=== PATIENT | female | born 1995 | race Caucasian/White ===

== ENCOUNTER 2016-05-02 06:07 | Inpatient (IN) | payer OTHER, MEDICAID ==
[~2016-05-02] VITALS: Ht 162.6 cm; Wt 54.5 kg
[~2016-05-02 06:07] MED LIST: ALBU17AE23 IH; ARIP15TA PO; CETI10CA PO; DOCU100C37 PO; DOXE10CA PO; FERR-84 PO; FERR325C PO; HYDR-229 PO; HYDR-3583 PO; HYDR-3812 PO; IBUP-1773 PO; Ibuprofen PO; NITR100C3 PO; ONDA-42 PO; OXYC1TAB87 PO; PREN1COM6 PO; SULF1TAB38 PO; TAMS0.4C2 PO; TRAZ150T42 PO; VALTREX; acyclovir PO
--- OUTSIDE RECORDS SUMMARY | 2016-05-02 06:16 | XMS REPORT | Continuity of Care Document ---
Author Author [facility] Organization [facility] Address Unknown Phone Unavailable Care Team Providers Care Chaser Helper Name Role Phone VON CHAIDEZ MD PCP Insurance Providers Payer Name Policy Number Subscriber Name Relationship Luis Antonio [id number] Naun Loja 19 [facility] [id number] Romario Addison 18 Self / Same As Patient Advance Directives Directive Response Recorded Date/Time Advance Directives No 12/03/13 2:30pm Health Care Power of Research Technician No 12/03/13 2:30pm Organ Donor No 12/03/13 2:30pm Resuscitation Status Full Code 12/03/13 2:30pm Problems No known problems or medical conditions. Medications Medication Dose Route Sig Days/Qty Instructions Order Date Discontinued Date Status Cetirizine Hcl 10 Mg PO DAILY 05/15/11 10/30/13 Discontinued Doxepin Hcl 10 Mg PO DAILY M-F 2 HS 05/15/11 06/29/13 Discontinued Trazodone Hcl 200 Mg PO DAILY HS 05/15/11 06/29/13 Discontinued Aripiprazole 1 Tab PO DAILY DAILY 05/15/11 07/21/13 Discontinued Albuterol 17 Gm IH NEEDED PRN 05/15/11 10/30/13 Discontinued Ondansetron Hcl 4 Mg PO EVERY 6 HOURS PRN 10 Qty 05/17/11 06/29/13 Discontinued Acetaminophen/Hydrocodone Bitart 1 Ea PO Q4HR PRN 15 Qty 05/17/1106/01 Discontinued Tamsulosin Hcl 0.4 Mg PO DAILY ONE CAPSULE BY MOUTH 05/25/11 06/29/13 Discontinued Trimethoprim/Sulfamethoxazole 1 Ea PO TWICE A DAY 10 Days 05/25/1112/03 Discontinued Acetaminophen/Hydrocodone Bitart 1 Each PO Q 4 - 6 HRS PRN 4-6 HRS NEEDED FOR PAIN 05/25/11 06/29/13 Discontinued [Valtrex] 06/29/13 07/28/13 Discontinued Vit #91/Fe Fum/Fa/Dha 1 Each PO 06/29/13 10/30/13 Discontinued Nitrofurantoin Macrocrystals 1 Cap PO TWICE A DAY 20 Qty 06/29/1303/05 Discontinued [acyclovir ] 400 Mg PO TWICE A DAY 10/30/13 Active [Ibuprofen] 600 Mg PO EVERY 6 HOURS PRN PAIN 40 Qty 12/04/13 Active Ferrous Sulfate 325 ( PO DAILY 60 Qty 12/04/13 Active Oxycodone/Acetaminophen 1-2 Tab PO Q3H PRN PAIN 30 Qty 12/04/13 Active Social History Social History Problem Response Recorded Date/Time Alcohol Use Denies Use 12/03/2013 2:30pm Recreational Drug Use No 12/03/2013 2:30pm Recent Foreign Travel No 07/28/2013 11:05pm Recent Infectious Disease Exposure No 07/28/2013 11:05pm Hospitalization with Isolation Denies 12/05/2013 2:14pm Sexually Transmitted Disease No 12/03/2013 2:30pm Smoking Status Never a Smoker 12/03/2013 12:58pm Do you dip or chew tobacco? No 12/03/2013 12:58pm Query Response Start Date Stop Date Smoking Status Never a Smoker Hospital Discharge Instructions Patient Instructions Physician Instructions New, Converted or Re-Newed RX: RX on Chart Additional Follow Up: Yes (1 week with Dafne Durán/Joe, 6 weeks Edilson/ANNY) Activity: Activity as Tolerated (no lifting over 25 lbs) Driving Instructions: No Driving for 1 Week NO SMOKING: NO SMOKING Nothing Inside Vagina: No Douching, No [place], No Tampons Discharge Diet: No Restrictions Return to The Hospital For: any of the below Symptoms to Report to : Bleeding Excessive, Pain Increased, Fever Over 101 Degrees F, Vaginal Bleeding Increase (> 1 pad per hour), Cramps in Feet or Legs, Vaginal Discharge Foul For Any Problems or Questions: Contact Your Physician Infection Signs and Symptoms: Increased Redness, Foul Odor of Wound, Increased Drainage, Skin Itchy or Has a Rash, Increased Swelling, Temperature Above 101 F Operative Area Clean and Dry: Keep Incision Clean/Dry Stitches/Luis Alberto/Dermabond: Dermabond Bathing Instructions: Shower Plan of Care Discharge Date 12/05/13 1:10pm Disposition 30 STILL A PATIENT Instructions/Education Provided DISCHARGE SECTION DISCHARGE Genital Herpes Simplex (DC) Forms Provided PDI Prescriptions See Medications Section Referrals (Unspecified) VON CHAIDEZ MD (Unspecified) 01/20/14 Address: [facility] [place] [place] [address] DAFNE DURÁN (Unspecified) 12/12/13 Address: [facility] [address] [place] [address] Functional Status No functional status results. Allergies, Adverse Reactions, Alerts Allergen Type Severity Reaction Status Last Updated Risperidone Allergy Unknown Active 06/29/13 sertraline ([id number]) Allergy Unknown Active 06/29/13 citalopram ([id number]) Allergy Unknown Active 06/29/13 Immunizations Name Given Type influenza, split (incl. purified surface antigen) 11/22/13 Administered influenza, split (incl. purified surface antigen) 12/05/13 Administered Tdap 12/05/13 Administered influenza, split (incl. purified surface antigen) 12/05/13 Administered Tdap 12/05/13 Administered Vital Signs Acute Vital Signs Vital Response Date/Time Temperature (Fahrenheit) 97.2 degrees F (97.6 - 99.5) Temperature (Calculated Celsius) 36.21988 degrees C (36.4 - 37.5) Temperature Source Tympanic Pulse Rate (adult) 80 bpm (60 - 90) Respiratory Rate 16 bpm (12 - 24) O2 Sat by Pulse Oximetry 98 % (88 - 100) Blood Pressure 120/80 mm Hg Pain Pain Intensity 0 Height (Feet) 5 feet Height (Inches) 4.00 inches Height (Calculated Centimeters) 162.861490 cm Weight (Pounds) 149 pounds Weight (Ounces) 0.0 oz Weight (Calculated Grams) 32217.264 gm Weight (Calculated Kilograms) 67.785085 kilograms Calculated BMI 25.57 Results Test Source Date Result Interp. Ref. Range Comments Alanine Aminotransferase (ALT/SGPT) May 15, 2011 9:45am 33 U/L N 30- 65 Specimen Comment: blood in lab Albumin May 15, 2011 9:45am 4.1 G/DL N 3.4-5.0 Specimen Comment: blood in lab Alkaline Phosphatase May 15, 2011 9:45am 129 U/L N 60-350 Specimen Comment: blood in lab Aspartate Amino Transf (AST/SGOT) May 15, 2011 9:45am 17 U/L N 15-37 Specimen Comment: blood in lab BUN/Creatinine Ratio May 17, 2011 6:00am 11 - Blood Urea Nitrogen May 17, 2011 6:00am 8 MG/DL N 7-18 Calcium Level May 17, 2011 6:00am 8.5 MG/DL N 8.5-10.1 Carbon Dioxide Level May 17, 2011 6:00am 30 MMOL/L N 21-32 Chloride Level May 17, 2011 6:00am 107 MMOL/L N 101-110 Creatinine May 17, 2011 6:00am 0.7 MG/DL N 0.6-1.3 D-Dimer July 28, 2013 11:40pm 0.87 UG/ML H 0.00-0.49 Glucose Level May 17, 2011 6:00am 87 MG/DL N 74-106 Hematocrit May 16, 2011 5:37am 33 % L 35-52 Hemoglobin May 16, 2011 5:37am 11.6 G/DL N 11.5-16.0 Mean Corpuscular Hemoglobin May 16, 2011 5:37am 33 PG N 25-34 Mean Corpuscular Hemoglobin Concent May 16, 2011 5:37am 35 G/DL N 32- 36 Mean Corpuscular Volume May 16, 2011 5:37am 94 FL N 77-95 Mean Platelet Volume May 16, 2011 5:37am 10.3 FL N 7.4-10.4 Platelet Count May 16, 2011 5:37am 215 10^3/uL N 130-400 Potassium Level May 17, 2011 6:00am 4.1 MMOL/L N 3.6-5.0 Red Blood Count May 16, 2011 5:37am 3.57 10^6/uL L 3.79-5.25 Red Cell Distribution Width May 16, 2011 5:37am 11.7 % N 10.0-14.5 Sodium Level May 17, 2011 6:00am 142 MMOL/L N 135-145 Total Bilirubin May 15, 2011 9:45am 0.4 MG/DL N 0.0-1.0 Specimen Comment: blood in lab Total Protein May 15, 2011 9:45am 7.8 G/DL N 6.4-8.2 Specimen Comment : blood in lab Urine Bacteria June 29, 2013 5:35pm TRACE /HPF - Has specimen been collected/obtained? YSpecimen Description CLEAN CATCH Urine Bilirubin June 29, 2013 5:35pm NEGATIVE - Has specimen been collected/obtained? YSpecimen Description CLEAN CATCH Urine Casts June 29, 2013 5:35pm NONE /LPF - Has specimen been collected/obtained? YSpecimen Description CLEAN CATCH Urine Clarity June 29, 2013 5:35pm CLEAR - Has specimen been collected /obtained? YSpecimen Description CLEAN CATCH Urine Color June 29, 2013 5:35pm YELLOW - Has specimen been collected/ obtained? YSpecimen Description CLEAN CATCH Urine Crystals June 29, 2013 5:35pm NONE /LPF - Has specimen been collected/obtained? YSpecimen Description CLEAN CATCH Urine Culture Indicated June 29, 2013 5:35pm YES - Has specimen been collected/obtained? YSpecimen Description CLEAN CATCH Urine Glucose (UA) June 29, 2013 5:35pm NEGATIVE - Has specimen been collected/obtained? YSpecimen Description CLEAN CATCH Urine Ketones June 29, 2013 5:35pm 4+ H - Has specimen been collected/ obtained? YSpecimen Description CLEAN CATCH Urine Leukocyte Esterase June 29, 2013 5:35pm 3+ H - Has specimen been collected/obtained? YSpecimen Description CLEAN CATCH Urine Mucus June 29, 2013 5:35pm NEGATIVE /LPF - Has specimen been collected/obtained? YSpecimen Description CLEAN CATCH Urine Nitrite June 29, 2013 5:35pm NEGATIVE - Has specimen been collected/obtained? YSpecimen Description CLEAN CATCH Urine Test May 25, 2011 7:20am NEGATIVE - Comments to Proced Tech: ds 14 Urine Protein June 29, 2013 5:35pm 1+ H - Has specimen been collected/ obtained? YSpecimen Description CLEAN CATCH Urine RBC June 29, 2013 5:35pm 0-2 /HPF - Has specimen been collected/ obtained? YSpecimen Description CLEAN CATCH Urine Specific [place] June 29, 2013 5:35pm 1.025 H - Has specimen been collected/obtained? YSpecimen Description CLEAN CATCH Urine Squamous Epithelial Cells June 29, 2013 5:35pm 0-2 /HPF - Has specimen been collected/obtained? YSpecimen Description CLEAN CATCH Urine Urobilinogen June 29, 2013 5:35pm NORMAL MG/DL - Has specimen been collected/obtained? YSpecimen Description CLEAN CATCH Urine WBC June 29, 2013 5:35pm 5-10 /HPF H - Has specimen been collected /obtained? YSpecimen Description CLEAN CATCH Urine pH June 29, 2013 5:35pm 6 - Has specimen been collected/obtained ? YSpecimen Description CLEAN CATCH White Blood Count May 16, 2011 5:37am 6.7 10^3/uL N 4.3-11.0 Urine RBC (Auto) June 29, 2013 5:35pm 1+ H - Has specimen been collected /obtained? YSpecimen Description CLEAN CATCH MRSA Screen Nasal May 17, 2011 4:15am MRSA not isolated Urine Culture Urine-Clean Catch June 29, 2013 5:35pm Strep, Beta Hemolytic Group B Procedures Procedure Status Date Provider(s) section completed 12/03/13 PETE CHAMBERLAIN DO Encounters Encounter Location Date/Time Discharged Inpatient Via [facility] 12/03/13 12:35pm Departed Clinic Via [facility] 12/02/13 8:09pm Departed Clinic Via [facility] 11/22/13 2:00pm Departed Clinic Via [facility] 11/19/13 12:28pm Departed Clinic Via [facility] 11/14/13 1:49am Registered Clinic Via [facility] 11/11/13 10:23am
[2016-05-02] MEDS ORDERED: LEVO750T9 PO (06:22)
[2016-05-02] MEDS ORDERED: ONDA8TAB9 PO (06:22)
[2016-05-02] MEDS ORDERED: OXYC-197 PO (06:22)
[2016-05-02] MEDS ORDERED: PROCHLORPERAZINE 10 MG/2ML INJ (COMPAZINE) IV STA (06:26)
--- NOTE | 2016-05-02 06:26 | ED Abdominal Pain ---
General Chief Complaint: Abdominal/GI Problems Stated Complaint: POSS KIDNEY STONE Source of Information: Patient, Spouse, Other (some records from [facility] brought by the patient) Exam Limitations: Other (pain) History of Present Illness Time Seen By Provider: 06:25 Initial Comments Presents p/ [facility] [place] earlier this AM, 05/02, c/ severe right flank/RLQ abdominal pain that probably started a couple of days ago but became much worse last PM. Dx c/ a 7-8mm right UVJ stone c/ severe hydro as well as a UTI. Given Toradol, Fentanyl, Zofran, and Rocephin, as well as 2L of NS IV there. Patient was set up to set Dr. Hunter @ 15:30 this afternoon, but told if her pain worsened that she needed to present here for admission for pain control and anticipated Lithotripsy in AM, 05/03. Timing/Duration: Constant, Getting Worse, Other (as above) Severity/Quality: Severe, Sharp, Stabbing Location: Flank (right) Radiation: RLQ Activities at Onset: None Modifying Factors: Improves With Other (none) Associated Symptoms: Back Pain (right flank)No Fever/Chills, Nausea/Vomiting Allergies and Home Medications Allergies Coded Allergies: No Known Drug Allergies (Unverified , 08/19/15) Home Medications Levofloxacin 750 Mg Tablet 750 MG PO UD (Reported) Ondansetron 8 Mg Tab.rapdis 8 MG PO UD (Reported) Oxycodone HCl/Acetaminophen 1 Each Tablet 1 EACH PO UD (Reported) Review of Systems Constitutional: see HPI Gastrointestinal: See HPI Abdominal Pain (RLQ) Nausea Vomiting Musculoskeletal: see HPI back pain (right) All Other Systems Reviewed Negative Unless Noted: Yes (Negative excepted noted.) Past Vkxrupv-Hpwslx-Jsecss Hx Patient Social History Recent Foreign Travel: No Contact w/Someone Who Travel: No Surgeries HX Surgeries: Yes (LITHOTRIPSY) Respiratory Hx Respiratory Disorders: Yes Respiratory Disorders: Asthma Cardiovascular Hx Cardiac Disorders: No Neurological Hx Neurological Disorders: Yes Reproductive System Hx Reproductive Disorders: No Sexually Transmitted Disease: No HIV/AIDS: No Female Reproductive Disorders: Denies Genitourinary Hx Genitourinary Disorders: Yes Genitourinary Disorders: Kidney Stones Gastrointestinal Hx Gastrointestinal Disorders: No Gastrointestinal Disorders: Gastroesophageal Reflux Musculoskeletal Hx Musculoskeletal Disorders: Yes Musculoskeletal Disorders: Arthritis, Scoliosis, Chronic Back Pain Endocrine Hx Endocrine Disorders: No HEENT HX ENT Disorders: No Loss of Vision: Denies Hearing Impairment: Denies Cancer Hx Cancer: No Psychosocial Hx Psychiatric Problems: Yes (HX psychosis at 16,sleep problems,cutter-no problems since adult) Behavioral Health Disorders: ADD/ADHD, Pseudo Seizures, Bipolar Integumentary HX Skin/Integumentary Disorder: No Blood Transfusions Hx Blood Disorders: Yes (HX ANEMIA) Adverse Reaction to a Blood Tr: No (N/A) Family Medical History Family Medial History: Arthritis 19 MOTHER Asthma 19 MOTHER Diabetes mellitus 19 MOTHER Hypercholesterolemia 19 MOTHER Psychosocial problem 19 MOTHER (depression and anxiety) Severe allergy G8 SISTER (allergies to medicine/seasnal) No Family History of: AIDS Abdominal aortic aneurysm Gildardo's disease Alcoholism Alzheimer's disease Aphasia Cancer of mouth Cardiovascular disease Cataracts Colon cancer Completed stroke Congenital disease Congenital heart disease Coronary thrombosis Cystic fibrosis Deafness or hearing loss Dementia Drug abuse Dysphasia Fibrocystic disease of breast Gastroenteritis Glaucoma Headache disorder Hypertension Infertility Kidney disease Myocardial infarction Neoplasm Not obtainable due to adoption Osteoporosis Parkinson's disease Prostate cancer Respiratory disorder Seizure disorder Thyroid disease Tuberculosis Visual disorder Physical Exam Vital Signs VS - Last 72 Hours, by Label 05/02/16 06:22 Temp 97.3 Pulse 113 Resp 22 B/P 124/76 Pulse Ox 100 O2 Delivery Room Air Capillary Refill : General Appearance: WD/WN severe distress HEENT: normal ENT inspection Neck: supple Respiratory: no respiratory distress Cardiovascular: tachycardia Gastrointestinal: tenderness (RLQ) Rectal: deferred Back: CVA tenderness (R) Neurologic/Psychiatric: no motor/sensory deficits alert oriented x 3 Skin: warm/dry Progress/Results/Core Measures Results/Orders My Orders Orders-ELINOR JOSHI DO Saline Lock/Iv-Start (05/02/16 06:25) Hydromorphone Injection (Dilaudid Inject (05/02/16 06:30) Diphenhydramine Injection (Benadryl Inje (05/02/16 06:30) Prochlorperazine Injection (Compazine In (05/02/16 06:26) Hydromorphone Injection (Dilaudid Inject (05/02/16 06:30) Saline Lock/Iv-Start (05/02/16 06:29) Ns Iv 1000 Ml (Sodium Chloride 0.9%) (05/02/16 06:29) Vital Signs/I&O Vital Sign - Last 12Hours 05/02/16 06:22 Temp 97.3 Pulse 113 Resp 22 B/P 124/76 Pulse Ox 100 O2 Delivery Room Air Progress Note : Progress Note Much improved p/ the Dilaudid Departure Communication Time/Spoke to Admitting Phy: 06:30 Impression Impression: Primary Impression: Intractable severe right flank pain Additional Impressions: 7-8mm right UVJ ureterolithiasis c/ severe hydro UTI (urinary tract infection) Nausea and vomiting Disposition: ADMITTED INPATIENT Condition: Improved Decision to Admit Reason: Admit from ER (General) Decision to Admit/Date: May 02, 2016 Time/Decision to Admit Time: 06:30 Departure-Patient Inst. Referrals: VON CHAIDEZ MD (PCP/Family) Primary Care Physician ELINOR JOSHI DO May 02, 2016 06:26
[2016-05-02] MEDS ORDERED: NS IV 1000 ML 1,000 ML IV ONE (06:29)
[2016-05-02] MEDS ORDERED: diphenhydrAMINE 50 MG/ML INJ (BENADRYL) IVP ONE (06:30)
[2016-05-02] MEDS ORDERED: HYDROmorphone (DILAUDID) 2 MG/ML VIAL IVP PRN (06:30)
[2016-05-02] MEDS ORDERED: HYDROmorphone (DILAUDID) 2 MG/ML VIAL IVP ONE (06:30)
[2016-05-02 07:05] VITALS: BP 110/73
[2016-05-02] MEDS ORDERED: CATHETER FLUSH 10 ML SYR IV PRN (07:15)
[2016-05-02] MEDS ORDERED: ONDANSETRON 4 MG/2 ML (SDV) Z0FRAN IV PRN (07:30)
--- NOTE | 2016-05-02 08:00 | Diagnostic Imaging Report ---
INDICATION: Abdominal pain. COMPARISON: 07/27/2011. FINDINGS: Nonobstructive bowel gas. No evidence of free air, though evaluation is limited on supine imaging. There is a 6 mm mineralized focus in the lower right hemipelvis which is likely phlebolith. However, distal ureteral calculus cannot be excluded. Normal regional skeleton. IMPRESSION: 1. There is a 6 mm mineralized focus in the lower right hemipelvis is likely a phlebolith. However, a distal ureteral calculus cannot be excluded. CT without contrast could be performed for further evaluation. 2. Nonobstructive bowel gas pattern. Dictated by: Dictated on workstation # [id number]
[2016-05-02] MEDS: NS W/KCL 40 MEQ/L 1,000 ML IV SCH ×3 (08:07→23:15)
[2016-05-02] MEDS: KETOROLAC 30 MG/ML VIAL IV SCH ×3 (08:11→18:15)
[2016-05-02] MEDS: FAMOTIDINE 20MG/2ML IV (PEPCID) IV SCH ×2 (08:16→21:18)
[2016-05-02] MEDS: cefTRIAXone INJECTION 1,000 MG in NS (IVPB) 50 ML IV SCH (08:50)
[2016-05-02 08:56] LABS: BILIRUBIN,URINE NEGATIVE (NEGATIVE); KETONES,URINE NEGATIVE (NEGATIVE); LEUKOCYTE ESTERASE ,URINE 3+ (NEGATIVE); NITRITE,URINE POSITIVE (NEGATIVE); PH,URINE 7 (5-9); PROTEIN,URINE 3+ (NEGATIVE); UROBILINOGEN,URINE NORMAL (NORMAL)
[2016-05-02 09:18] LABS: SQUAMOUS EPITHELIAL CELL,UR 0-2 /HPF; WBC,URINE >100 /HPF
[2016-05-02] MEDS ORDERED: FLU TRIvalent (5 YOA+) 2016-17 (AFLURIA) 0.5 ML IM ONE (10:30)
[2016-05-02 12:00] VITALS: BP 114/71
[2016-05-02] MEDS: HYDROmorphone (DILAUDID) 2 MG/ML VIAL IV PRN ×2 (15:59→21:25)
[2016-05-02 16:00] VITALS: BP 114/73
[2016-05-02] MEDS ORDERED: ALFUZOSIN HCL 10 MG TAB (UROXATRAL) PO SCH (18:00)
[2016-05-02 18:46] VITALS: BP 112/74
[2016-05-02 20:00] VITALS: BP 104/71
[2016-05-03] VITALS: BP 97/52
[2016-05-03] MEDS: KETOROLAC 30 MG/ML VIAL IV SCH ×2 (00:36→05:19)
[2016-05-03] MEDS: HYDROmorphone (DILAUDID) 2 MG/ML VIAL IV PRN ×2 (00:40→03:17)
[2016-05-03] MEDS: NS IV 1000 ML 1,000 ML IV SCH ×2 (02:12→09:45)
[2016-05-03] MEDS ORDERED: NS IV 1000 ML 1,000 ML IV ONE (02:30)
[2016-05-03 04:00] VITALS: BP 95/49
[2016-05-03 06:32] LABS: BASOPHILS % (AUTO) 0 % (0-10); EOSINOPHILS # (AUTO) 0.1 10^3/uL (0.0-0.3); EOSINOPHILS % (AUTO) 0 % (0-10); LYMPHOCYTES # (AUTO) 1.8 X 10^3 (1.0-4.0); LYMPHOCYTES % (AUTO) 12 % (12-44); MEAN CORPUSCULAR HEMOGLOBIN 30 PG (25-34); MEAN CORPUSCULAR HGB CONC 34 G/DL (32-36); MEAN CORPUSCULAR VOLUME 90 FL (80-99); MEAN PLATELET VOLUME 10.5 FL (7.4-10.4); MONOCYTES # (AUTO) 0.9 X 10^3 (0.0-1.0); MONOCYTES % (AUTO) 6 % (0-12); NEUTROPHILS % (AUTO) 81 % (42-75); PLATELET COUNT 218 10^3/uL (130-400); RED BLOOD COUNT 3.18 10^6/uL (4.35-5.85); RED CELL DISTRIBUTION WIDTH 12.1 % (10.0-14.5); WHITE BLOOD COUNT 14.7 10^3/uL (4.3-11.0)
[2016-05-03 06:46] LABS: NEUTROPHILS % (MANUAL) 71 %
[2016-05-03 06:47] LABS: BAND NEUTROPHILS 13 %; BASOPHILS % (MANUAL) 0 %; EOSINOPHILS % (MANUAL) 0 %; LYMPHOCYTES % (MANUAL) 11 %
[2016-05-03 06:53] LABS: ANION GAP 8 MMOL/L (5-14); BLOOD UREA NITROGEN 10 MG/DL (7-18); BUN/CREATININE RATIO 15; CARBON DIOXIDE 16 MMOL/L (21-32); CHLORIDE 113 MMOL/L (98-107); CREATININE SERUM 0.67 MG/DL (0.60-1.30); POTASSIUM 3.9 MMOL/L (3.6-5.0); SODIUM 137 MMOL/L (135-145)
[2016-05-03 06:54] LABS: CALCIUM 7.3 MG/DL (8.5-10.1); GFR ESTIMATED > 60; GLUCOSE 105 MG/DL (70-105)
[2016-05-03] MEDS ORDERED: LIDOCAINE PF 2% 10 ML (XYLOCAINE) AMP ONE (07:14)
[2016-05-03] MEDS ORDERED: DEXAMETHASONE PF 10 MG/ML (DECADRON) VIAL ONE (07:14)
[2016-05-03] MEDS ORDERED: MIDAZOLAM 2 MG/2 ML (VERSED) VIAL ONE (07:14)
[2016-05-03] MEDS ORDERED: fentaNYL INJECTION 100 MCG/2 ML AMP ONE (07:14)
[2016-05-03] MEDS ORDERED: ONDANSETRON 4 MG/2 ML (SDV) Z0FRAN ONE (07:14)
[2016-05-03] MEDS ORDERED: proPOfol 200 MG/20 ML (DIPRIVAN) VIAL IV ONE (07:14)
[2016-05-03] MEDS ORDERED: LACTATED RINGERS 1,000 ML IV ONE (07:14)
[2016-05-03] MEDS ORDERED: SEVOFLURANE (ULTANE) 15 ML INHAL SOLN ONE (07:14)
--- NOTE | 2016-05-03 07:20 | Progress Note-Pre Operative ---
Pre-Operative Progress Note H&P Reviewed The H&P was reviewed, patient examined and no changes noted. Date H&P Reviewed: May 03, 2016 Time H&P Reviewed: 07:19 Pre-Operative Diagnosis: RT DISTAL URETERAL STONE SABRINA WICK MD May 03, 2016 7:20 am
--- NOTE | 2016-05-03 07:20 | Progress Note-Post Operative ---
Post-Operative Progess Note Pre-Operative Diagnosis RT DISTAL URETERAL STONE Post-Operative Diagnosis SAME Post-Op Procedure Note Date of Procedure: May 03, 2016 Name of Procedure: CYSTO, RT URETEROSCOPY WITH STONE LITHOTRIPSY Anesthesia Type GENERAL SABRINA WICK MD May 03, 2016 7:20 am
--- NOTE | 2016-05-03 07:21 | Discharge Inst-Urology ---
Discharge Inst-Urology Discharge Medications New, Converted, or Re-newed RX: RX on Chart Patient Instructions/Follow Up Plan Please make appointment to been seen in office in 3 weeks. Increase oral fluids for 48 hours and then as needed. Diet and Activity as tolerated. If questions or concerns contact your physician Or seek help at emergency department. SABRINA WICK MD May 03, 2016 7:21 am
[2016-05-03] MEDS: FAMOTIDINE 20MG/2ML IV (PEPCID) IV SCH (08:00)
[2016-05-03] MEDS: cefTRIAXone INJECTION 1,000 MG in NS (IVPB) 50 ML IV SCH (08:26)
[2016-05-03] MEDS ORDERED: LACTATED RINGERS 1,000 ML IV PRN (08:26)
[2016-05-03] MEDS ORDERED: ROCURONIUM 50 MG/5 ML (ZEMURON) VIAL IV ONE (08:34)
[2016-05-03] MEDS ORDERED: NEOSTIGMINE (BLOXIVERZ ) 1 MG/1ML 10 ML VIAL ONE (08:49)
[2016-05-03] MEDS ORDERED: GLYCOPYRROLATE 0.2 MG/ML (ROBINUL) 2 ML VIAL ONE (08:49)
[2016-05-03] MEDS ORDERED: FUROSEMIDE 40 MG/4 ML INJ (LASIX) ONE (09:06)
[2016-05-03] MEDS ORDERED: KETOROLAC 30 MG/ML VIAL ONE (09:06)
--- NOTE | 2016-05-03 09:28 | HISTORY AND PHYSICAL ---
DATE OF ADMISSION: 05/02/2016 CHIEF COMPLAINT: Right flank pain. PRESENT HISTORY: 20-year-old white female presented to the emergency room in [place] early this morning complaining of severe right flank pain, nausea and vomiting. She was found to have a 6 mm stone in the right UVJ causing severe hydronephrosis. The patient was released to follow-up with me at the office today; however she presented to the emergency room here in [place] at my recommendation complaining of severe pain again. She was subsequently admitted. A KUB confirms diagnosis of the stone. The patient had a previous stone before back in 2011 or so, Dr. Noel treated it with ESWL. She denies any previous further episodes. FAMILY HISTORY: Negative for stones. REVIEW OF SYSTEMS: Negative. PERSONAL HISTORY: She is , has 2 children. No smoking. No alcohol. No drugs. ALLERGIES: No known drug allergies. SURGERY ROSADO: Two C-sections. She has no medical illnesses, and no medication. PHYSICAL EXAMINATION: Vitals per chart. GENERAL: Well-nourished, well-developed, in no acute distress at the time of my examination. HEAD: Normocephalic. ENT: Unremarkable. NECK: Supple. No bruits. CHEST: Clear, nontender. HEART: Regular rate and rhythm. No murmur. ABDOMEN: Soft with a 1+ right CVA tenderness. EXTREMITIES: Lower extremity no edema or cyanosis. NEUROLOGICAL EXAM: Grossly intact. Oriented x3. IMPRESSION: Right distal ureteral stone with pain and hydronephrosis, and hematuria. PLAN: Cystoscopy, right ureteroscopy with stone lithotripsy, possible basket, double-J stent, ESWL or lithotomy tomorrow morning. This was fully explained to her and her . All questions answered. Job ID: [id number] Dictated Date: 05/02/2016 17:51:09 Kiln Stoker Date: 05/03/2016 09:22:31/anat
[2016-05-03] MEDS ORDERED: ONDANSETRON 4 MG/2 ML (SDV) Z0FRAN IVP PRN (09:30)
[2016-05-03] MEDS ORDERED: morphine INJ 10 MG/ML 1ML (SYR OR VIAL) IVP PRN (09:30)
[2016-05-03] MEDS ORDERED: MEPERIDINE (DEMEROL) INJ 50 MG/ML IVP PRN (09:30)
[2016-05-03 10:10] VITALS: BP 94/58
[2016-05-03 12:00] VITALS: BP 99/52
[2016-05-03 13:05] VITALS: BP 99/52
--- NOTE | 2016-05-03 14:15 | OPERATIVE REPORT ---
PROCEDURE PHYSICIAN: SABRINA WICK DATE OF PROCEDURE: 05/03/2016 PREOPERATIVE DIAGNOSIS: Right distal ureteral stone. POSTOPERATIVE DIAGNOSIS: Right distal ureteral stone. OPERATION: 1. Cystoscopy. 2. Right ureteroscopy with stone lithotripsy. SURGEON: Elsa. ANESTHESIA: General. COMPLICATIONS: None. PROCEDURE: Under satisfactory general anesthesia, the patient in lithotomy position, the genitalia were prepped and draped in usual sterile fashion. Cystoscope was introduced in the bladder. It was inspected. Completely normal except for very sluggish efflux on the right side. Using the Foroblique lens, I dilated the right ureteral orifice, intramural portion to the level of the stone and inserted a 6.9-[place]oz[place] semirigid ureteroscope. I visualized the stone and using the lithoclast, I was able to fragment the stone disimpact it and completely fragmented and the fragments mostly fell into the bladder. I went more proximally up into the ureter. There were no further stones or fragments none also distally. There was no reason for a stent. The ureteroscope was removed. The cystoscope was reintroduced and draining the bladder. The patient tolerated the procedure and anesthesia well and was sent to recovery room in stable condition. Instructions were given to the will see her back in the office in 3 weeks. We will do a work-up for stone prevention. Job ID: [id number] Dictated Date: 05/03/2016 09:06:19 Residence Director Date: 05/03/2016 14:11:12 / anat
[2016-05-03] MEDS ORDERED: FAMOTIDINE 20 MG (PEPCID) TABLET PO SCH (21:00)
== END 2016-05-03 13:05 | disposition home or self-care (01) | DRG 694 ==
LOC: EDUNIT# 06:07 → ER 06:12 → ICU 06:50 → 4TH 18:45
PROVIDERS: ADMIT Urology; ATTEND Urology
PROC: 0TF68ZZ Fragmentation in Right Ureter, Via Natural or Artificial Opening Endoscopic (ICD-10-PCS; principal; 2016-05-03 08:16)
DX: N20.1 Calculus of ureter (principal); N13.30 Unspecified hydronephrosis; R31.9 Hematuria, unspecified
CPT/HCPCS: 36415; 74000; 80048; 81000; 84703; 85007; 85027; 87081; 87088; 87186; 93005; 96374; 96375

== ENCOUNTER → 2016-08-19 | Outpatient (CLI) | payer OTHER, MEDICAID ==
[~2016-08-19] MED LIST changes: +LEVO750T9 PO; +ONDA8TAB9 PO; +OXYC-197 PO
--- NOTE | 2016-08-19 18:41 | Diagnostic Imaging Report ---
INDICATION: patient, size and dates. TECHNIQUE: OB sonography performed with transabdominal views. FINDINGS: A single live intrauterine fetus is seen measuring 11 weeks 4 days by crown-rump length with heart rate of 158 beats per minute. There is no evidence of subchorionic bleed. Amniotic fluid appears qualitatively normal. There is no overt adnexal mass or free fluid. IMPRESSION: Single live intrauterine fetus measuring 11 weeks 4 days in size. There was no detectable abnormality. Dictated by: Dictated on workstation # [id number]
== END ==
LOC: RAD 12:42
PROVIDERS: ATTEND Family Medicine
DX: Z36 Encounter for antenatal screening of mother (principal); Z3A.11 11 weeks gestation of pregnancy
CPT/HCPCS: 76801

== ENCOUNTER → 2016-10-25 | Outpatient (CLI) | payer MEDICAID, OTHER ==
--- NOTE | 2016-10-25 14:00 | Diagnostic Imaging Report ---
INDICATION: survey. TECHNIQUE: Multiple real-time grayscale images were obtained over the gravid uterus. COMPARISON: 08/19/2016. FINDINGS: There is a single living intrauterine in variable presentation. There is a normal volume of amniotic fluid. Placenta is anterior. There is no previa. Anatomical survey is unremarkable apart from nonvisualization of the stomach. The heart rate is 126 beats per minute and regular. Cervical length is 4.3 cm. IMPRESSION: Single living intrauterine with sonographically estimated gestational age of 20 weeks 4 days and estimated date of confinement of 03/04/2017. stomach was not well visualized. Cervical length is 4.3 cm. Biometrical measurements are as follows: Biparietal 4.82 cm, age 20 weeks 5 days. Head circumference 17.93 cm, age 20 weeks 3 days. Abdominal circumference 17.00 cm, age 22 weeks 0 days. Femur length 3.3 cm, age 20 weeks 3 days. Sonographic estimate age: 21 weeks 0 days. Sonographic estimated date of delivery: . Estimated Weight: 401 gm (+/- 59 gm). LMP percentile: 43%. heart rate: 126 beats per minute. number: 1 of 1. Dictated by: Dictated on workstation # [id number]
== END ==
LOC: RAD 09:44
PROVIDERS: ATTEND Family Medicine
DX: Z36 Encounter for antenatal screening of mother (principal); Z3A.20 20 weeks gestation of pregnancy
CPT/HCPCS: 76805

== ENCOUNTER → 2016-11-09 | Outpatient (CLI) | payer MEDICAID ==
--- NOTE | 2016-11-09 14:43 | Diagnostic Imaging Report ---
INDICATION: Followup for incomplete anatomical assessment. TECHNIQUE: Multiple Real-time grayscale images were obtained over the gravid uterus. COMPARISON: 11/11/2013. FINDINGS: A single viable intrauterine is currently in transverse position. There appears to be a normal amount of amniotic fluid. The anteriorly positioned placenta is without previa. cardiac activity is present with a rate of 139 BPM. Followup imaging demonstrates visualization of the stomach which has an unremarkable appearance. Biometrical measurements were not performed on the current study. IMPRESSION: Limited obstetrical sonogram imaging demonstrates visualization of the stomach which has an unremarkable appearance. Dictated by: Dictated on workstation # [id number]
== END ==
LOC: RAD 10:08
PROVIDERS: ATTEND Family Medicine
DX: Z3A.00 Weeks of gestation of pregnancy not specified; Z36 Encounter for antenatal screening of mother
CPT/HCPCS: 76816

== ENCOUNTER → 2016-12-08 | Outpatient (CLI) | payer MEDICAID ==
--- NOTE | 2016-12-08 18:54 | Diagnostic Imaging Report ---
INDICATION: Follow-up growth. TECHNIQUE: Multiple real-time grayscale images were obtained over the gravid uterus. COMPARISON: 11/09/2016. FINDINGS: heart rate is 133 beats per minutes. The placenta is anterior. There is no placenta previa. position is cephalic. Adequate amniotic fluid is seen. Biometrical measurements are as follows: Biparietal 6.65 cm, age 26 weeks 6 days. Head circumference 25.23 cm, age 27 weeks 3 days. Abdominal circumference 23.11 cm, age 27 weeks 4 days. Femur length 5.25 cm, age 28 weeks 0 days. Sonographic estimate age: 27 weeks 4 days. Sonographic estimated date of delivery: 03/05/17. Estimated Weight: 1096 gm (+/- 160 gm). LMP percentile: 43%. heart rate: 133 beats per minute. number: 1 of 1. IMPRESSION: Live intrauterine with appropriate interval growth. Dictated by: Dictated on workstation # [id number]
== END ==
LOC: RAD 13:02
PROVIDERS: ATTEND Family Medicine
DX: O26.849 Uterine size-date discrepancy, unspecified trimester (principal); Z3A.27 27 weeks gestation of pregnancy
CPT/HCPCS: 76816

== ENCOUNTER → 2017-01-26 | Outpatient (CLI) | payer BC, MEDICAID ==
--- NOTE | 2017-01-26 18:08 | Diagnostic Imaging Report ---
INDICATION: Size dates discrepancy. TECHNIQUE: Multiple real-time grayscale images were obtained over the gravid uterus. COMPARISON: Exam compared to 12/08/2016. FINDINGS: Reese gestation is in cephalic position. The amniotic fluid index is 8.9 with the largest pocket of fluid measuring 4.6 cm. The placenta is anterior with no abruption or previa and the measurements today correlate with an age 34 weeks 5 days, reflecting normal growth from the initial exam. Biometrical measurements are congruent. No abnormality at the anatomical survey. IMPRESSION: Reese gestation in cephalic position measures 34 weeks 5 days. Biometrical measurements are as follows: Biparietal 8.82 cm, age 35 weeks 5 days. Head circumference 30.91 cm, age 34 weeks 4 days. Abdominal circumference 29.91 cm, age 34 weeks 0 days. Femur length 6.61 cm, age 34 weeks 1 days. Sonographic estimate age: 34 weeks 5 days. Sonographic estimated date of delivery: 03/04/2016. Estimated Weight: 2363 gm (+/- 345 gm). LMP percentile: 37%. heart rate: 139 beats per minute. number: 1 of 1. Dictated by: Dictated on workstation # [id number]
== END ==
LOC: RAD 13:51
PROVIDERS: ATTEND Family Medicine
DX: O26.843 Uterine size-date discrepancy, third trimester (principal); Z3A.34 34 weeks gestation of pregnancy
CPT/HCPCS: 76816

== ENCOUNTER 2017-02-21 10:38 | Outpatient (CLI) | payer BC, MEDICAID ==
[~2017-02-21] VITALS: Ht 162.6 cm; Wt 69.9 kg
[~2017-02-21 10:38] MED LIST changes: +ACHD5005 PO; -HYDR-3812 PO
[2017-02-21] MEDS ORDERED: FERR325T5 PO (10:52)
[2017-02-21] MEDS ORDERED: PREN-8 PO (10:52)
[2017-02-21 10:57] VITALS: BP 112/70
== END 2017-02-21 11:05 | disposition home or self-care (01) ==
LOC: PREOP 10:38
PROVIDERS: ATTEND Obstetrics & Gynecology
DX: Z01.818 Encounter for other preprocedural examination (principal); Z11.2 Encounter for screening for other bacterial diseases; O34.211 Maternal care for low transverse scar from previous cesarean delivery
CPT/HCPCS: 87081

== ENCOUNTER 2017-02-27 06:08 | Inpatient (IN) | payer BC, MEDICAID ==
[~2017-02-27] VITALS: Ht 162.6 cm; Wt 72.7 kg
[~2017-02-27 06:08] MED LIST changes: +CITRIC ACID/SOB CIT (BICITRA) 30 ML UDC ONE; +FAMOTIDINE 20MG/2ML IV (PEPCID) ONE; +FERR325T5 PO; +METOCLOPRAMIDE INJ 10 MG/2 ML (REGLAN) ONE; +NS (IVPB) 50 ML ONE; +PREN-8 PO; +ceFAZolin 1,000 MG (ANCEF) VIAL ONE
[2017-02-27] MEDS ORDERED: LACTATED RINGERS 1,000 ML IV PRN ×2 (06:12)
[2017-02-27 06:15] VITALS: BP 110/61
[2017-02-27] MEDS ORDERED: ceFAZolin INJECTION 1,000 MG in NS (IVPB) 50 ML IV ONE (06:15)
[2017-02-27] MEDS ORDERED: CATHETER FLUSH 10 ML SYR IV PRN (06:15)
[2017-02-27] MEDS ORDERED: FAMOTIDINE 20MG/2ML IV (PEPCID) IV ONE (06:15)
[2017-02-27] MEDS ORDERED: METOCLOPRAMIDE INJ 10 MG/2 ML (REGLAN) IV ONE (06:15)
[2017-02-27] MEDS ORDERED: CITRIC ACID/SOB CIT (BICITRA) 30 ML UDC PO ONE (06:15)
[2017-02-27 06:57] LABS: BILIRUBIN,URINE NEGATIVE (NEGATIVE); CLARITY,URINE CLEAR; COLOR,URINE YELLOW; GLUCOSE, URINE (UA) NEGATIVE (NEGATIVE); KETONES,URINE NEGATIVE (NEGATIVE); LEUKOCYTE ESTERASE ,URINE 1+ (NEGATIVE); NITRITE,URINE NEGATIVE (NEGATIVE); PH,URINE 7 (5-9); PROTEIN,URINE NEGATIVE (NEGATIVE); UROBILINOGEN,URINE NORMAL (NORMAL)
[2017-02-27 07:01] LABS: HEMOGLOBIN 10.6 G/DL (11.5-16.0); LYMPHOCYTES % (AUTO) 21 % (12-44); MEAN CORPUSCULAR HEMOGLOBIN 31 PG (25-34); MEAN PLATELET VOLUME 9.4 FL (7.4-10.4); MONOCYTES % (AUTO) 8 % (0-12); NEUTROPHILS % (AUTO) 71 % (42-75); PLATELET COUNT 234 10^3/uL (130-400); RED BLOOD COUNT 3.38 10^6/uL (4.35-5.85); WHITE BLOOD COUNT 7.2 10^3/uL (4.3-11.0)
[2017-02-27 07:02] LABS: BASOPHILS % (AUTO) 0 % (0-10); EOSINOPHILS % (AUTO) 1 % (0-10); LYMPHOCYTES # (AUTO) 1.5 X 10^3 (1.0-4.0); MONOCYTES # (AUTO) 0.5 X 10^3 (0.0-1.0); NEUTROPHILS # (AUTO) 5.1 X 10^3 (1.8-7.8)
[2017-02-27 07:17] LABS: BACTERIA,URINE NEGATIVE /HPF
[2017-02-27 07:18] LABS: AMORPHOUS SEDIMENT,UR RARE AMOR URATES /LPF
[2017-02-27] MEDS ORDERED: DEXAMETHASONE 10 MG/ML (DECADRON) 1 ML VIAL ONE (07:23)
[2017-02-27] MEDS ORDERED: ONDANSETRON 4 MG/2 ML (SDV) Z0FRAN ONE (07:23)
[2017-02-27] MEDS ORDERED: OXYTOCIN/NORMAL SALINE 1,000 ML IV ONE (07:23)
--- NOTE | 2017-02-27 07:26 | Progress Note-Pre Operative ---
Pre-Operative Progress Note H&P Reviewed The H&P was reviewed, patient examined and no changes noted. Date Seen by Provider: Feb 27, 2017 Time Seen by Provider: 07:15 Date H&P Reviewed: Feb 27, 2017 Time H&P Reviewed: 07:15 Pre-Operative Diagnosis: previous section, fam h/o ovarian cancer, risk reducing salpingect PETE CHAMBERLAIN DO Feb 27, 2017 07:26
[2017-02-27] MEDS ORDERED: fentaNYL INJECTION 100 MCG/2 ML AMP ONE (07:28)
[2017-02-27 07:42] VITALS: BP 103/57
[2017-02-27] MEDS ORDERED: PHENYLEPHRINE 100 MCG/ML 10 ML (ANESTHESIA) SYR ONE (08:13)
[2017-02-27] MEDS ORDERED: INFLUENZA TRIvalent 2017-2018 0.5 ML/45 MCG SYR IM ONE (08:15)
[2017-02-27] MEDS ORDERED: KETOROLAC 30 MG/ML VIAL ONE (08:36)
[2017-02-27] MEDS ORDERED: OXYTOCIN/NORMAL SALINE 500 ML IV SCH (08:43)
[2017-02-27] MEDS ORDERED: ONDANSETRON 4 MG/2 ML (SDV) Z0FRAN IVP PRN (08:45)
[2017-02-27] MEDS ORDERED: HYDROmorphone (DILAUDID) 2 MG/ML VIAL IVP PRN (08:45)
[2017-02-27] MEDS ORDERED: MEASLES,MUMPS,RUBELLA 1 EA INJ SC SCH (08:45)
[2017-02-27] MEDS: KETOROLAC 30 MG/ML VIAL IVP SCH ×3 (08:45→20:31)
[2017-02-27] MEDS ORDERED: TETANUS,DIPTH,PERTUSS P/F (BOOSTRIX) 0.5 ML VIAL IM SCH (08:45)
--- NOTE | 2017-02-27 09:02 | Cesarean Section Operative ---
Procedure Procedure Note Pre-operative Diagnosis: Heidi Peters is a 21 /Para 5/2 ,Gestational Age 39 weeks, risk of ovarian cancer Post-operative Diagnosis: same, Procedure: Repeat low transverse section, risk reducing salpingectomy Physician: PETE CHAMBERLAIN Court Reporter: Cici Escobar APRN Estimated blood loss: 700 mL Disposition: stable Findings: Viable male infant, Apgars 8/9, weight 7#1oz, intact placenta, 3vc, normal appearing uterus, tubes, and ovaries. Indications: Heidi Peters is a 21 /Para 5/2 ,Gestational Age 39 weeks, risk of ovarian cancer Procedure Details: The patient was seen in pre-op and the procedure was discussed with the patient in full, including the risks, benefits, and alternatives. All questions were answered. The patient was taken to the operating room and a time out was performed, verifying patient and procedure. After spinal anesthesia was placed by our anesthesia colleagues, the patient was placed in the dorsal supine with leftward tilt for uterine displacement.~ Her abdomen was then prepped and draped in the typical sterile fashion. A Pfannenstiel skin incision was made using a scalpel and carried down through the underlying fascia. The fascia was incised in the midline and tented up using Richard clamps. The muscles very scarred to the fascia. Also scarred together. On both the inferior and superior fascia side the rectus muscle was dissected off bluntly and sharply using Lopez scissors. The peritoneum was identified and entered bluntly in the midline. This was then stretched laterally using manual strength. After entering the abdominal cavity and confirming lack of intraperitoneal adhesions, a large Zenon retractor was placed and the lower uterine segment was visualized. A scalpel was utilized to make a low transverse uterine incision. Amniotomy was performed with an Allis clamp with return of clear fluid. The infant's head was grasped and brought to the level of the incision and delivered with assistance of a Silastic suction. Infant was delivered without difficulty. Mouth and nares were suctioned with bulb suction. After the umbilical cord was clamped and cut, the infant was handed off to the pediatric staff. A sample of cord blood was then obtained. The placenta was delivered intact via uterine massage. The uterus was cleared of all clots and debris. The uterine incision was closed using 0 Vicryl in a running locked fashion. A second imbricated layer was placed using 0 Vicryl in a running fashion as well. The bilateral tubes and ovaries appeared normal. A bilateral salpingectomy was now done. I elevated both tubes with Emmett forceps and then incised the mesosalpinx with a bovie and then excised with the Ligasure. I clamped across the tube at the cornua and excised. There was good hemostasis. The uterus abdominal gutters were cleared of all clots and debris. A final check of the uterine incision showed it to be hemostatic. The peritoneum was closed using 3-0 Vicryl in a running fashion. The fascia was closed with 0 Vicryl in a running fashion. The subcutaneous space was hemostatic , and irrigated. The subcutaneous space was closed with 3-0 Vicryl in several single interrupted stitches. The skin was then closed using 4-0 Monocryl in a running subcuticular fashion. The skin edges were reapproximated together and were hemostatic. A pressure dressing was applied. All sponge, lap and needle counts were correct at the end of the procedure per nursing. Vitals - Labs Vital Signs - I&O Vital Signs Date Time Temp Pulse Resp B/P (MAP) Pulse Ox O2 Delivery O2 Flow Rate FiO2 02/27/17 07:42 99.0 83 18 103/57 (72) Room Air 02/27/17 06:15 97.8 91 18 110/61 (77) Room Air Labs Laboratory Tests 02/27/17 06:15: Urine Color YELLOW, Urine Clarity CLEAR, Urine pH 7, Urine Specific [place] 1.010L, Urine Protein NEGATIVE, Urine Glucose (UA) NEGATIVE, Urine Ketones NEGATIVE, Urine Nitrite NEGATIVE, Urine Bilirubin NEGATIVE, Urine Urobilinogen NORMAL, Urine Leukocyte Esterase 1+H, Urine RBC (Auto) NEGATIVE, Urine RBC NONE , Urine WBC 2-5, Urine Squamous Epithelial Cells 2-5, Urine Crystals PRESENTH, Urine Amorphous Sediment RARE BREEZY URATESH, Urine Bacteria NEGATIVE, Urine Casts NONE, Urine Mucus NEGATIVE, Urine Culture Indicated NO 02/27/17 06:20: White Blood Count 7.2, Red Blood Count 3.38L, Hemoglobin 10.6L, Mean Corpuscular Hemoglobin 31, Red Cell Distribution Width 12.0, Platelet Count 234 , Mean Platelet Volume 9.4, Neutrophils (%) (Auto) 71, Lymphocytes (%) (Auto) 21 , Monocytes (%) (Auto) 8, Eosinophils (%) (Auto) 1, Basophils (%) (Auto) 0, Neutrophils # (Auto) 5.1, Lymphocytes # (Auto) 1.5, Monocytes # (Auto) 0.5, Eosinophils # (Auto) 0.0, Basophils # (Auto) 0.0 PETE CHAMBERLAIN DO Feb 27, 2017 09:02
[2017-02-27 10:20] LABS: HEMATOCRIT 34 % (35-52); MEAN CORPUSCULAR HGB CONC 31 G/DL (32-36); MEAN CORPUSCULAR VOLUME 99 FL (80-99)
[2017-02-27] MEDS: DOCUSATE SODIUM 100 MG (COLACE) CAP PO SCH ×2 (11:08→19:45)
[2017-02-27 11:53] VITALS: BP 122/83
[2017-02-27 16:58] VITALS: BP 110/68
[2017-02-27] MEDS: HYDROmorphone (DILAUDID) 2 MG TAB PO PRN ×2 (17:00→21:37)
[2017-02-27] MEDS: ACETAMINOPHEN 500 MG TAB (TYLENOL) PO PRN (19:45)
[2017-02-27 21:30] VITALS: BP 112/64
[2017-02-28 00:45] VITALS: BP 114/74
[2017-02-28] MEDS: KETOROLAC 30 MG/ML VIAL IVP SCH (03:01)
[2017-02-28 05:00] VITALS: BP 103/56
[2017-02-28 05:59] LABS: BASOPHILS % (AUTO) 0 % (0-10); EOSINOPHILS % (AUTO) 0 % (0-10); HEMATOCRIT 24 % (35-52); HEMOGLOBIN 8.5 G/DL (11.5-16.0); LYMPHOCYTES # (AUTO) 3.1 X 10^3 (1.0-4.0); LYMPHOCYTES % (AUTO) 20 % (12-44); MEAN CORPUSCULAR HEMOGLOBIN 32 PG (25-34); MEAN CORPUSCULAR HGB CONC 35 G/DL (32-36); MEAN CORPUSCULAR VOLUME 93 FL (80-99); MEAN PLATELET VOLUME 10.5 FL (7.4-10.4); MONOCYTES # (AUTO) 1.6 X 10^3 (0.0-1.0); MONOCYTES % (AUTO) 10 % (0-12); NEUTROPHILS % (AUTO) 70 % (42-75); PLATELET COUNT 186 10^3/uL (130-400); RED BLOOD COUNT 2.63 10^6/uL (4.35-5.85); RED CELL DISTRIBUTION WIDTH 11.9 % (10.0-14.5); WHITE BLOOD COUNT 15.7 10^3/uL (4.3-11.0)
[2017-02-28] MEDS ORDERED: INFLUENZA TRIvalent 2017-2018 0.5 ML/45 MCG SYR IM ONE (08:47)
[2017-02-28 08:53] VITALS: BP 112/73
[2017-02-28] MEDS: IBUPROFEN 600 MG (MOTRIN) TAB PO SCH ×3 (08:55→21:03)
[2017-02-28] MEDS: HYDROmorphone (DILAUDID) 2 MG TAB PO PRN ×3 (08:55→18:12)
[2017-02-28] MEDS: DOCUSATE SODIUM 100 MG (COLACE) CAP PO SCH ×2 (08:55→21:03)
--- NOTE | 2017-02-28 10:08 | Postpartum Progress Note ---
Post Op Post-operative Day #1 s/p RLTCS, RR salpingectomy Subjective: Patient is without complaints. Ambulating, voiding after sultana removed. Tolerating a regular diet without nausea or vomiting. Normal lochia. Pain is well controlled with oral pain medications. Passing flatus. [] feeding. [] Objective: Vital Sign - Last 12Hours 02/28/17 02/28/17 00:45 05:00 Temp 98.7 98.7 Pulse 84 96 Resp 18 B/P (MAP) 114/74 (87) 103/56 (72) Pulse Ox 99 98 Intake and Output 02/28/17 00:00 Intake Total 972 ml Output Total 1000 ml Balance -28 ml Laboratory Tests Test 02/28/17 05:45 Range/Units White Blood Count 15.7 H 4.3-11.0 10^3/uL Red Blood Count 2.63 L 4.35-5.85 10^6/uL Hemoglobin 8.5 L 11.5-16.0 G/DL Hematocrit 24 L 35-52 % Mean Corpuscular Volume 93 80-99 FL Mean Corpuscular Hemoglobin 32 25-34 PG Mean Corpuscular Hemoglobin Concent 35 32-36 G/DL Red Cell Distribution Width 11.9 10.0-14.5 % Platelet Count 186 130-400 10^3/uL Mean Platelet Volume 10.5 H 7.4-10.4 FL Neutrophils (%) (Auto) 70 42-75 % Lymphocytes (%) (Auto) 20 12-44 % Monocytes (%) (Auto) 10 0-12 % Eosinophils (%) (Auto) 0 0-10 % Basophils (%) (Auto) 0 0-10 % Neutrophils # (Auto) 11.0 H 1.8-7.8 X 10^3 Lymphocytes # (Auto) 3.1 1.0-4.0 X 10^3 Monocytes # (Auto) 1.6 H 0.0-1.0 X 10^3 Eosinophils # (Auto) 0.0 0.0-0.3 10^3/uL Basophils # (Auto) 0.0 0.0-0.1 10^3/uL Physical Exam: General - Alert and oriented, no apparent distress Abdomen - Soft, appropriately tender to palpation, non-distended, fundus firm at umbilicus Incision - clean, dry and intact; no erythema or induration, no drainage Extremities - no edema, negative Augie's bilaterally Assessment: 1. post-operative day # 1, status post RLTCS. Recovering well, hemodynamically stable Acute blood loss anemia Plan: Routine post-operative care. Encourage breast feeding. Encourage ambulation. VTE prophylaxis: SCDs. Ferrous sulfate supplementation. Plan for discharge tomorrow Vitals - Labs Vital Signs - I&O Vital Signs Date Time Temp Pulse Resp B/P (MAP) Pulse Ox O2 Delivery O2 Flow Rate FiO2 02/28/17 05:00 98.7 96 18 103/56 (72) 98 02/28/17 00:45 98.7 84 18 114/74 (87) 99 02/27/17 21:30 98.5 102 18 112/64 (80) 99 02/27/17 16:58 98.5 109 18 110/68 (82) 98 Room Air 02/27/17 11:53 97.7 71 18 122/83 (96) 100 Room Air I & O 02/28/17 07:00 Intake Total 4222 ml Output Total 2925 ml Balance 1297 ml Labs Laboratory Tests 02/28/17 05:45: White Blood Count 15.7H, Red Blood Count 2.63L, Hemoglobin 8.5L, Hematocrit 24L , Mean Corpuscular Volume 93, Mean Corpuscular Hemoglobin 32, Mean Corpuscular Hemoglobin Concent 35, Red Cell Distribution Width 11.9, Platelet Count 186, Mean Platelet Volume 10.5H, Neutrophils (%) (Auto) 70, Lymphocytes (%) (Auto) 20 , Monocytes (%) (Auto) 10, Eosinophils (%) (Auto) 0, Basophils (%) (Auto) 0, Neutrophils # (Auto) 11.0H, Lymphocytes # (Auto) 3.1, Monocytes # (Auto) 1.6H, Eosinophils # (Auto) 0.0, Basophils # (Auto) 0.0 PETE CHAMBERLAIN DO Feb 28, 2017 10:08 am
[2017-02-28] MEDS ORDERED: IBUP-1773 PO (10:17)
[2017-02-28] MEDS ORDERED: FERR325T5 PO (10:17)
[2017-02-28] MEDS ORDERED: DOCU100C37 PO (10:17)
[2017-02-28] MEDS ORDERED: HYDR2TAB6 PO (10:17)
[2017-02-28] MEDS ORDERED: ACET-77 PO (10:17)
--- NOTE | 2017-02-28 10:46 | Anesthesia-Regional Post-Op ---
Regional Patient Condition Mental Status: Alert, Oriented x3 Circulation: Same as Pre-Op Headache: Absent Sensation: Full Recovery Motor Block: Absent Post Op Complications Complications None Follow Up Care/Instructions Patient Instructions None needed. Anesthesia/Patient Condition Patient is doing well, no complaints, stable vital signs, no apparent adverse anesthesia problems. No complications reported per nursing. SOHEILA POOL CRNA Feb 28, 2017 10:46
[2017-02-28 15:29] VITALS: BP 112/70
[2017-02-28] MEDS: FERROUS SULF 325 MG (IRON) TAB PO SCH (15:29)
[2017-02-28] MEDS: ACETAMINOPHEN 500 MG TAB (TYLENOL) PO PRN (18:11)
[2017-02-28 21:02] VITALS: BP 103/64
[2017-03-01 03:03] VITALS: BP 113/71
[2017-03-01] MEDS: IBUPROFEN 600 MG (MOTRIN) TAB PO SCH ×2 (03:05→09:14)
--- NOTE | 2017-03-01 07:37 | Discharge Inst-Women's Service ---
Discharge Inst-Women's Serv Depart Medication/Instructions New, Converted or Re-Newed RX: RX on Chart Final Diagnosis previous section ovarian cancer risk reduction repeat section with RR salpingectomy antepartum and acute blood loss anemia Consults/Follow Up Additional Follow Up: Yes (1-2 weeks with [facility] and 6 weeks at [facility]) Activity Activity: Activity as Tolerated Driving Instructions: No Driving for 1 Week NO SMOKING: NO SMOKING Nothing Inside Vagina: No Douching, No [place], No Tampons Diet Discharge Diet: No Restrictions Symptoms to Report to : Swelling Increased, Bleeding Excessive, Pain Increased, Fever Over 101 Degrees F, Vaginal Bleeding Increase, Cramps in Feet or Legs, Vaginal Discharge Foul For Any Problems or Questions: Contact Your Physician Skin/Wound Care Infection Signs and Symptoms: Increased Redness, Foul Odor of Wound, Increased Drainage, Skin Itchy or Has a Rash, Increased Swelling, Temperature Above 101 F Operative Area Clean and Dry: Keep Incision Clean/Dry Stitches/[place]/Dermabond: Dermabond Bathing Instructions: PETE Forde DO Mar 01, 2017 07:37
--- NOTE | 2017-03-01 09:02 | Progress Note-Standard ---
Standard Progress Note Progress Notes/Assess & Plan Date Seen by Provider: Mar 01, 2017 Time Seen by Provider: 08:30 Progress/Assessment & Plan Day # 1 Subjective: Patient is without complaints. Ambulating, voiding. Tolerating a regular diet without nausea or vomiting. Normal lochia. Pain is well controlled with oral pain medications. breast feeding. Objective: Vital Sign - Last 24 Hours 02/28/17 02/28/17 03/01/17 15:29 21:02 03:03 Temp 98.7 97.8 98.0 Pulse 91 111 83 Resp B/P (MAP) 112/70 (84) 103/64 (77) 113/71 (85) Pulse Ox 98 97 98 O2 Delivery Room Air Room Air Room Air Intake and Output 02/28/17 02/28/17 03/01/17 15:00 23:00 07:00 Intake Total 1367 ml 800 ml Output Total 1850 ml 1100 ml Balance -483 ml -300 ml Physical Exam: General - Alert and oriented, no apparent distress Abdomen - Soft, appropriately tender to palpation, non-distended, fundus firm at umbilicus Extremities - no edema, negative Augie's bilaterally Incision: c/d/i Assessment: 1. post-op day # 2, C/S Recovering well, hemodynamically stable Acute blood loss anemia Peripartum HTN Plan: Starting labetalol 200 bid today Routine care. Encourage breast feeding. Encourage ambulation. Ferrous sulfate supplementation. Plan for discharge SHARATH FERNANDEZ DO Mar 01, 2017 9:02 am
--- NOTE | 2017-03-01 09:05 | Progress Note-Standard ---
Standard Progress Note Progress Notes/Assess & Plan Date Seen by Provider: Mar 01, 2017 Time Seen by Provider: 08:20 Progress/Assessment & Plan Post-operative Day #2 s/p RLTCS, RR salpingectomy Subjective: Patient is without complaints. Ambulating, voiding after sultana removed. Tolerating a regular diet without nausea or vomiting. Normal lochia. Pain is well controlled with oral pain medications. Passing flatus. Objective: Vital Signs 03/01/17 03:03 Temp 98.0 Pulse 83 Resp 18 B/P (MAP) 113/71 (85) Pulse Ox 98 O2 Delivery Room Air Physical Exam: General - Alert and oriented, no apparent distress Abdomen - Soft, appropriately tender to palpation, non-distended, fundus firm at umbilicus Incision - clean, dry and intact; no erythema or induration, no drainage Extremities - no edema, negative Augie's bilaterally Assessment: 1. post-operative day # 2, status post RLTCS. Recovering well, hemodynamically stable Acute blood loss anemia Plan: Routine post-operative care. Encourage breast feeding. Encourage ambulation. VTE prophylaxis: SCDs. Ferrous sulfate supplementation. Plan for discharge tomorrow SHARATH FERNANDEZ DO Mar 01, 2017 9:05 am
[2017-03-01 09:12] VITALS: BP 107/69
[2017-03-01] MEDS: DOCUSATE SODIUM 100 MG (COLACE) CAP PO SCH (09:14)
[2017-03-01] MEDS: FERROUS SULF 325 MG (IRON) TAB PO SCH (09:14)
== END 2017-03-01 11:10 | disposition home or self-care (01) | DRG 765 ==
LOC: LDRP 06:08
PROVIDERS: ADMIT Obstetrics & Gynecology; ATTEND Obstetrics & Gynecology
PROC: 10D00Z1 Extraction of Products of Conception, Low, Open Approach (ICD-10-PCS; principal; 2017-02-28)
PROC: 0UT70ZZ Resection of Bilateral Fallopian Tubes, Open Approach (ICD-10-PCS; 2017-02-28)
DX: O34.211 Maternal care for low transverse scar from previous cesarean delivery (principal); O99.02 Anemia complicating childbirth; D64.9 Anemia, unspecified; O90.81 Anemia of the puerperium; D62 Acute posthemorrhagic anemia; Z80.41 Family history of malignant neoplasm of ovary; Z40.03 Encounter for prophylactic removal of fallopian tube(s); Z37.0 Single live birth; Z3A.39 39 weeks gestation of pregnancy; Z23 Encounter for immunization
CPT/HCPCS: 36415; 81000; 83033; 85025; 86850; 86900; 86901; 90715; 94664